=== PATIENT | female | born 1960 | race Two or more races ===

== ENCOUNTER 2021-12-17 14:32 | Emergency (ER) | payer OTHER ==
[~2021-12-17] VITALS: Ht 162.6 cm; Wt 63.5 kg
--- NOTE | 2021-12-17 14:53 | NUR ---
DR RAMIRES AT BEDSIDE
[2021-12-17] MEDS ORDERED: AMLODIPINE BESYLATE 5 MG TABLET PO ONE (15:00)
[2021-12-17] MEDS ORDERED: AMLODIPINE BESYLATE 5 MG TABLET ONE (15:01)
[2021-12-17 15:31] LABS: BASOPHILS % (AUTO) 0.3 % (0.0-2.0); EOSINOPHILS % (AUTO) 0.1 % (0.0-6.0); HEMATOCRIT 44 % (33-45); HEMOGLOBIN 14.7 g/dL (11.5-14.8); LYMPHOCYTES # (AUTO) 1.3 K/uL (0.8-4.8); LYMPHOCYTES % (AUTO) 13.3 % (20.0-44.0); MEAN CORPUSCULAR HGB CONC 33 g/dl (31.0-36.0); MEAN CORPUSCULAR VOLUME 91 fL (82-100); MONOCYTES # (AUTO) 0.3 K/uL (0.1-1.30); MONOCYTES % (AUTO) 3.5 % (2.0-12.0); NEUTROPHILS # (AUTO) 7.8 K/uL (1.8-8.9); NEUTROPHILS % (AUTO) 82.8 % (43.0-81.0); PLATELET COUNT (AUTO) 174 K/uL (150-450); RED BLOOD CELL COUNT(AUTO) 4.83 MIL/uL (4.0-5.2); WHITE BLOOD COUNT (AUTO) 9.5 K/uL (4.3-11.0)
--- NOTE | 2021-12-17 15:35 | NUR ---
COVIS SWAB DONE AND SENT TO LAB
[2021-12-17 15:53] LABS: CALCIUM, SERUM 9.5 mg/dL (8.5-10.1); CREATININE 0.7 mg/dL (0.6-1.3); POTASSIUM 3.5 mmol/L (3.5-5.1)
[2021-12-17] MEDS ORDERED: CLONIDINE HCL 0.1 MG TABLET PO ONE (17:00)
[2021-12-17] MEDS ORDERED: AMLO5TAB4 PO (17:04)
--- NOTE | 2021-12-17 17:17 | NUR ---
Patient discharged to [facility] unit#[id number] in stable condition. Written and verbal after care instructions given. Patient verbalizes understanding of instruction.
[2021-12-17 17:18] VITALS: BP 171/95
== END 2021-12-17 17:18 ==
LOC: ER 14:35
DX: I10 Essential (primary) hypertension (principal); Z20.822 Contact with and (suspected) exposure to COVID-19; R94.31 Abnormal electrocardiogram [ECG] [EKG]; Z82.49 Family history of ischemic heart disease and other diseases of the circulatory system
CPT/HCPCS: 36415; 80048; 84484; 85025; 87426; 93005; 99285; C9803